=== PATIENT | female | born 1980 | race Caucasian/White ===

== ENCOUNTER → 2017-02-23 | Outpatient (POV) | LOC: OUTPT 00:01 | PROVIDERS: ATTEND Otolaryngology | DX: H91.90 Unspecified hearing loss, unspecified ear (principal); H93.13 Tinnitus, bilateral | CPT/HCPCS: 92557; 92567 ==

== ENCOUNTER 2017-02-26 07:59 | Outpatient (CLI) ==
[2017-02-26 08:32] LABS: CREATININE 0.75 mg/dL (0.60-1.30)
--- NOTE | 2017-02-26 12:21 | MRI ---
EXAM: MRI brain without and with IV contrast. DATE: 26 February 2017. HISTORY: Right ear hearing loss. Tinnitus beginning in October 2016. TECHNIQUE: Sagittal T1W pre and post contrast, axial T2W, axial FLAIR, axial T1W pre and postcontras t, and axial DWI sequences brain were obtained using 1.2 Meseret magnet. Additional coronal and axial T1W sequences before and after IV contrast, and axial / coronal T2W thin-slice images through the bra instem and IACs were obtained. CONTRAST: Omniscan - 18 ml IV. COMPARISON: None. FINDINGS: The ventricles, cisterns, and subarachnoid spaces are normal in size and configuration. N o midline shift, mass effect, or abnormal extra-axial fluid collection is apparent. No acute infarct , hemorrhage or enhancing intra-axial neoplasm is visible. No abnormal enhancement is seen in the br ain, meninges, or dura. Minimal IR hyperintense in the white matter abutting the anterior horn of ea ch lateral ventricle is likely normal variation vs minimal small vessel disease. The merritt-white jeffery er differentiation is normal. The cerebellopontine angles, brainstem, and visible cervical spinal co rd are normal. Left cerebellar tonsil extends near the inferior margin of the foramen magnum. There is no Chiari 1 malformation. The pituitary gland is normal in size and signal. Corpus callosum is normal in size and configuration. Flow voids are present in the major intracranial arteries. No int racranial aneurysm or AVM is revealed. Heterogeneous signal within the transverse sinuses and and st raight sinus are likely artifacts. No definitive dural venous sinus thrombosis is apparent. The opt ic chiasm, optic tracts, and optic nerves are normal. The orbits are normal. There is no acute sin usitis. Minor adenoid tissue prominence appears benign. No upper neck mass or lymphadenopathy is d etected. Slight thickening of the inner table of the frontal bone appears benign. No calvarial neop lasm or acute fracture is evident. The 5th cranial nerves are symmetric in size, without abnormal enhancement. Meckel's cave and the ca vernous sinus are normal bilaterally. An artery is revealed in close proximity to the inferior borde r of the cisternal segment of the left 5th cranial nerve; however, no definitive trigeminal nerve dis placement or compression is apparent. Thin slice, high-resolution images through the IACs and brainstem reveal no abnormal enhancement or n eoplasm involving the 7th/8th cranial nerve complexes. The cochlea, semicircular canals, and vestibu le are symmetric and normal bilaterally. No abnormal enlargement of the vestibular aqueduct is seen on either side. The mastoid air cells appear normal. No cholesteatoma or mastoiditis is apparent. No definitive cranial nerve displacement or compression. IMPRESSIONS: 1. No acute infarct, hemorrhage, intra-axial mass or hydrocephalus. 2. Normal bilateral 7th/8th CN complex, IACs and temporal bones. 3. No distinct trigeminal nerve vascular sling or other abnormality. 4. Normal variation vs minimal supratentorial small vessel disease. 5. Minimal, benign hyperostosis frontalis interna.
== END 2017-02-26 08:00 | disposition home or self-care (01) ==
LOC: RAD 07:59
PROVIDERS: ATTEND Otolaryngology
DX: Z01.812 Encounter for preprocedural laboratory examination (principal); H91.91 Unspecified hearing loss, right ear
CPT/HCPCS: 36415; 82565